=== PATIENT | female | born 1995 | race Caucasian/White ===

== ENCOUNTER → 2020-08-21 | Outpatient (CLI) | payer OTHER ==
[~2020-08-21] MED LIST: CATHETER FLUSH 10 ML SYR IV PRN; HOLD METFORMIN - RECEIVED CONTRAST 20 ML VIAL IV SCH; IOHEXOL 350 MG/ML 100 ML (OMNIPAQUE 350) VIAL IV ONE; NS 100 ML (IVPB) BAG IV ONE
--- NOTE | 2020-08-21 15:35 | Diagnostic Imaging Report ---
PROCEDURE: CT angiography of the chest with contrast. TECHNIQUE: Multiple contiguous axial images were obtained through the chest after uneventful bolus administration of intravenous contrast. 3D reconstructed CTA MIP acquisitions were also performed. Auto Exposure Controls were utilized during the CT exam to meet ALARA standards for radiation dose reduction. INDICATION: Covid infection and dyspnea. FINDINGS: There is good opacification of central pulmonary vessels. Peripheral pulmonary arteries are suboptimally opacified, however no definite filling defect is identified. Thoracic aorta is also unremarkable in appearance. There is no evidence of pulmonary consolidation or mass. No significant pleural or pericardial fluid is identified. There is no pathologic adenopathy identified within the thorax. There is an approximately 1 cm nodular focus in the right lobe of the liver. This could represent area of enhancement secondary to hemangioma. Adenoma would have similar appearance. IMPRESSION: No CTA evidence of pulmonary embolism or other acute abnormality within the thorax. Probable 1 cm hemangioma or adenoma in the right lobe of the liver. Dictated by: Dictated on workstation # [id number]
== END ==
LOC: RAD 14:47
PROVIDERS: ATTEND Nurse Practitioner
DX: R06.02 Shortness of breath (principal); Z86.19 Personal history of other infectious and parasitic diseases
CPT/HCPCS: 71275

== ENCOUNTER → 2020-08-29 | Outpatient (CLI) | payer OTHER | LOC: CECHO 16:57 | PROVIDERS: ATTEND Family Medicine | DX: R06.00 Dyspnea, unspecified (principal); R07.9 Chest pain, unspecified; R06.02 Shortness of breath | CPT/HCPCS: 93306 ==

== ENCOUNTER → 2020-12-06 | Outpatient (CLI) | payer OTHER ==
[2020-12-06 17:48] VITALS: BP 129/83
--- NOTE | 2020-12-06 17:48 | Cardiology Stress Test Report ---
Stress Test Report Date of Procedure/Referring: Date of Procedure: Dec 06, 2020 PCP Jenny Carty MD Admitting Physician [facility] Indications: HTN Baseline Heart Rate: 99 Baseline Blood Pressure: Blood Pressure Systolic: 129 Blood Pressure Diastolic: 83 Baseline EKG: Baseline EKG: NSR Summary/Conclusion: Summary: In summary, the patient started exercising with a baseline heart rate, blood pressure and EKG mentioned above Patient was able to exercise for a total of 7minutes on Giovanny protocol, METs 8.5 Maximum heart rate 171 Maximum blood pressure 165/59 Stress EKG, Minimal nondiagnostic changes Recovery EKG , Return to baseline Conclusion: 1. Good exercise tolerance for a total of 7 minutes on Giovanny protocol, 8.5 METs, achieving 88 percent of maximum expected heart rate 2. Minimal nondiagnostic EKG changes with exercise returned to baseline during recovery 3. No arrhythmia was noted JENNY CARTY MD Dec 06, 2020 17:48
== END ==
LOC: CARD 09:57
PROVIDERS: ATTEND Internal Medicine Cardiovascular Disease
DX: I10 Essential (primary) hypertension (principal)
CPT/HCPCS: 93017

== ENCOUNTER 2022-12-11 05:24 | Emergency (ER) | payer BC, OTHER ==
[~2022-12-11] VITALS: Ht 157.5 cm; Wt 79.4 kg
[2022-12-11] MEDS ORDERED: DICY10CA12 PO (06:19)
--- NOTE | 2022-12-11 06:19 | ED GI ---
General Chief Complaint: Abdominal/GI Problems Stated Complaint: DIARRHEA/ABD PAIN Nursing Triage Note: TO ED VIA POV AND AMBULATORY TO ROOM 5 WITH C/O ABD PAIN AND DIARRHEA OFF AND ON SINCE LAST WEDNESDAY 12/06. TAKES OZEMPIC. Source of Information: Patient, Family (mother) Exam Limitations: No Limitations History of Present Illness Date Seen by Provider: Dec 11, 2022 Time Seen by Provider: 06:02 Initial Comments 27-year-old female presents to the emergency department today for abdominal cramping and diarrhea. Symptoms started on Friday, described as "severe." S he seemed to get better and then again on Friday had mild loose stools maybe 2 or 3 times that day. This morning at about 330 she describes "severe diarrhea" once again. She states she is gone every 5 minutes since about 330 this morning. She denies any fevers or chills. She has diffuse abdominal cramping without any focal abdominal tenderness. No recent travel. 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 She is on Ozempic. She has been on the same dose since September. No recent antibiotic use. All other systems reviewed and negative except documented per HPI. Voice recognition software was used to help create this chart Allergies and Home Medications Allergies Coded Allergies: No Known Drug Allergies (Unverified , 06/06/14) Patient Home Medication List Home Medication List Reviewed: Yes Review of Systems Review of Systems Constitutional: see HPI Past Iqztivi-Penzth-Ufjjaq Hx Patient Social History Tobacco Use?: No Substance use?: No Alcohol Use?: No Immunizations Up To Date Influenza Vaccine Up-to-Date: Yes; Up-to-Date COVID19 Vaccine Director Of Revenue: 3 COVID VACCINES Seasonal Allergies Seasonal Allergies: Yes Family Medical History Reviewed Nursing Family Hx Patient reports no known family medical history. No Pertinent Family Hx Physical Exam Vital Signs Vital Signs - First Documented 12/11/22 05:38 Temp 37.1 Pulse 87 Resp 16 B/P (MAP) 133/78 (96) Pulse Ox 98 O2 Delivery Room Air Capillary Refill : Less Than 3 Seconds Height/Weight/BMI Height: 5'2" Weight: 135lbs. oz. [id number]; 32.00 BMI Method:Stated General Appearance: WD/WN, no apparent distress HEENT: normal ENT inspection, pharynx normal Neck: non-tender, supple Respiratory: chest non-tender, lungs clear, normal breath sounds, no respiratory distress, no accessory muscle use Cardiovascular: regular rate, rhythm, no murmur Gastrointestinal: normal bowel sounds, non tender, soft, no organomegaly Extremities: non-tender, normal inspection, normal capillary refill Neurologic/Psychiatric: alert, normal mood/affect, oriented x 3 Skin: normal color, warm/dry Progress/Results/Core Measures Results/Orders Vital Signs/I&O 12/11/22 05:38 Temp 37.1 Pulse 87 Resp 16 B/P (MAP) 133/78 (96) Pulse Ox 98 O2 Delivery Room Air Blood Pressure Mean: 96 Departure Communication (Admissions) Patient is hemodynamically stable with normal vital signs. She has had diarrheal stools since 330 this morning. No indication for stool testing, labs or other testing at this time. There is no indication of an emergent medical condition. This may related to a GI bug or could certainly be related to the Ozempic that she is taking. No recent antibiotic use, no evidence for C. difficile infection. Pediatric clinic extremely weak. Increased risk for viral GI symptoms. He recommended to take Imodium [id number]. I will give her a prescription for Bentyl in case this does not work. She will increase her fluids and rest. I gave her a work note. She is discharged in stable condition. Impression Primary Impression: Diarrhea Qualified Codes: R19.7 - Diarrhea, unspecified Disposition: HOME, SELF-CARE Condition: Stable Departure-Patient Inst. Referrals: RACHEL SMITH MD (PCP/Family) Primary Care Physician Patient Instructions: Diarrhea, Adult ED Add. Discharge Instructions: Increase your fluids, rest. Use Imodium [id number]. If this does not work get the Bentyl prescription filled and try that. If your symptoms persist I recommend you speak to your doctor about Ozempic being a possible cause of your diarrhea. If your symptoms last greater than 2 weeks, recommend you get your stool tested however there is no indication prior to that. All discharge instructions reviewed with patient and/or family. Voiced understanding. Scripts Dicyclomine HCl (Dicyclomine HCl) 10 Mg Capsule 10 MG PO TID for Diarrhea for 5 Days, #15 CAP Prov: EMILIANO VIVAR DO 12/11/22 Work/School Note: Work Release Form Date Seen in the Emergency Department: Dec 11, 2022 Return to Work: Dec 12, 2022 Restrictions: No Restrictions EMILIANO VIVAR DO Dec 11, 2022 06:19
[2022-12-11 06:27] VITALS: BP 123/76
== END 2022-12-11 06:27 | disposition home or self-care (01) ==
LOC: EDUNIT# 05:24 → ER 05:27
DX: R19.7 Diarrhea, unspecified (principal); R10.84 Generalized abdominal pain; Z79.85 Long-term (current) use of injectable non-insulin antidiabetic drugs
CPT/HCPCS: 99281